=== PATIENT | male | born 1990 | race Hispanic/Latino ===

== ENCOUNTER 2016-08-27 03:13 | Emergency (ER) | payer BC ==
[2016-08-27 03:29] VITALS: BP 125/79; PULSE 92; RESP 16; TEMP 97.6; O2SAT 96
--- NOTE | 2016-08-27 04:04 | ED PDOC ---
HPI: Psych/Substance Abuse Time Seen by Provider: 08/27/16 03:22 Chief Complaint (Nursing): Alcohol Ingestion Chief Complaint (Provider): Alcohol usage History Per: Patient Additional Complaint(s): patient brought in by ems after being found sleepin in [place] on a table, patient admits to drinking tonight. Pt offers no complaints. Past Medical History Reviewed: Nursing Documentation, Vital Signs Vital Signs: Last Vital Signs Temp 97.6 F 08/27/16 03:27 Pulse 92 H 08/27/16 03:27 Resp 16 08/27/16 03:27 BP 125/79 08/27/16 03:27 Pulse Ox 96 08/27/16 03:27 - Medical History PMH: No Chronic Diseases - Surgical History Surgical History: No Surg Hx - Family History Family History: States: Unknown Family Hx - Allergies Allergies/Adverse Reactions: Allergies Allergy/AdvReac Type Severity Reaction Status Date / Time No Known Allergies Allergy Verified 08/27/16 03:28 Review of Systems ROS Statement: Except As Marked, All Systems Reviewed And Found Negative Physical Exam - Reviewed Nursing Documentation Reviewed: Yes Vital Signs Reviewed: Yes - Physical Exam Appears: Positive for: Well, Non-toxic, No Acute Distress Head Exam: Positive for: ATRAUMATIC, NORMAL INSPECTION, NORMOCEPHALIC Skin: Positive for: Normal Color, Warm, DRY Eye Exam: Positive for: EOMI, Normal appearance, PERRL ENT: Positive for: Normal ENT Inspection Neck: Positive for: Normal, Painless ROM Cardiovascular/Chest: Positive for: Regular Rate, Rhythm Respiratory: Positive for: CNT, Normal Breath Sounds Gastrointestinal/Abdominal: Positive for: Normal Exam, Bowel Sounds, Soft Back: Positive for: Normal Inspection Extremity: Positive for: Normal ROM Neurologic/Psych: Positive for: Alert, Oriented - ECG O2 Sat by Pulse Oximetry: 96 Medical Decision Making Medical Decision Making: Pt monitored in ED, remains calm and cooperative. Stable for discharge in am Disposition - Clinical Impression Clinical Impression: Alcohol ingestion - Patient ED Disposition Is Patient to be Admitted: No - Disposition Disposition: Routine/Home Disposition Time: 05:40 Condition: STABLE Instructions: Alcohol Intoxication (ED)
== END 2016-08-27 06:02 | disposition home or self-care (01) ==
LOC: H.ER 03:13
DX: F10.129 Alcohol abuse with intoxication, unspecified (principal)